=== PATIENT | female | born 1995 | race American Indian/Alaskan Native ===

== ENCOUNTER 2021-11-01 01:27 | Emergency (ER) | payer SELFPAY ==
[2021-11-01] MEDS ORDERED: HYDROcodone/ACETAMINOPHEN 5-325 MG TAB PO ONE (06:33)
--- NOTE | 2021-11-01 06:35 | Emergency Department Report ---
ED Abdominal Pain HPI - General Chief Complaint: Abdominal Pain Stated Complaint: R rib pain Time Seen by Provider: 11/01/21 06:24 Source: patient Mode of arrival: Ambulatory Limitations: No Limitations - History of Present Illness Initial Comments: 26-year-old female presents to the ER today with complaints of right upper quadrant/right rib pain. Patient states that she been having this pain intermittently for 2 to 3 months. She states that the pain started while she was in correction, and she did have it checked out back in August while she was in [facility] and they told her it was related to "cholesterol stones". She states that when she was diagnosed, it was around the time that she was getting released from correction and she never had a chance to follow-up to get referral to general surgery. She states that the pain flared up a couple days ago and got significantly worse last night. She states that the pain seems to be worse with deep breath. She states that the pain has improved since she has been here in the ER. She denies any shortness of breath, chest pain, nausea vomiting, change in her bowel movements, UTI symptoms or any abnormal vaginal symptoms. She denies any fever or chills. She denies any history of abdominal surgeries in t he past. She states that her last menstrual cycle was the end of last month. MD Complaint: abdominal pain, other (right lower rib pain ) -: Gradual, days(s), month(s) Severity scale (0 -10): 10 - Related Data Previous Rx's Medication Instructions Recorded Last Taken Type Cyclobenzaprine [Flexeril 10mg] 10 mg PO TID PRN #20 tablet 01/22/15 Unknown Rx Azithromycin [Zithromax TAB] 250 mg PO QDAY #6 tablet 01/05/16 Unknown Rx Prednisone [predniSONE 10 mg 10 mg PO .TAPER #1 tab.ds.pk 01/05/16 Unknown Rx (6-Day Pack, 21 Tabs)] Pseudoephed/Cod/Guaifen 5 ml PO Q6H PRN #120 ml 01/05/16 Unknown Rx [Robitussin DAC 10-100-30Mg/5Ml] Ibuprofen [Motrin 600 MG tab] 600 mg PO Q8H PRN #30 tablet 11/01/21 Unknown Rx Allergies Allergy/AdvReac Type Severity Reaction Status Date / Time No Known Allergies Allergy Verified 01/22/15 18:24 ED Review of Systems ROS: Stated complaint: R rib pain Other details as noted in HPI Comment: All other systems reviewed and negative Constitutional: denies: chills, fever Eyes: denies: eye pain, eye discharge, vision change ENT: denies: ear pain, throat pain Respiratory: other (Right lower rib pain). denies: cough, shortness of breath, SOB with exertion, SOB at rest, wheezing Cardiovascular: denies: chest pain, palpitations, dyspnea on exertion, edema, syncope, paroxysmal nocturnal dyspnea Gastrointestinal: abdominal pain. denies: nausea, diarrhea, constipation, sophie temesis Genitourinary: denies: urgency, dysuria, frequency, hematuria, discharge, abnormal menses, dyspareunia Musculoskeletal: denies: back pain, joint swelling, arthralgia Skin: denies: rash, lesions, change in color, change in hair/nails, pruritus Neurological: denies: headache, weakness, numbness, paresthesias, confusion, abnormal gait, vertigo Psychiatric: denies: anxiety, depression, auditory hallucinations, visual hallucinations, homicidal thoughts, suicidal thoughts Hematological/Lymphatic: denies: easy bleeding, easy bruising, swollen glands ED Past Medical Hx - Past Medical History Previous Medical History?: Yes Hx Psychiatric Treatment: Yes (Bipolar, ADHD) - Surgical History Past Surgical History?: No - Social History Smoking Status: Current Some Day Smoker Substance Use Type: None - Medications Home Medications: Home Medications Medication Instructions Recorded Confirmed Last Taken Type Cyclobenzaprine [Flexeril 10mg] 10 mg PO TID PRN #20 tablet 01/22/15 Unknown Rx Azithromycin [Zithromax TAB] 250 mg PO QDAY #6 tablet 01/05/16 Unknown Rx Prednisone [predniSONE 10 mg 10 mg PO .TAPER #1 tab.ds.pk 01/05/16 Unknown Rx (6-Day Pack, 21 Tabs)] Pseudoephed/Cod/Guaifen 5 ml PO Q6H PRN #120 ml 01/05/16 Unknown Rx [Robitussin DAC 10-100-30Mg/5Ml] Ibuprofen [Motrin 600 MG tab] 600 mg PO Q8H PRN #30 tablet 11/01/21 Unknown Rx ED Physical Exam - General Limitations: No Limitations General appearance: alert, in no apparent distress - Head Head exam: Present: atraumatic, normocephalic, normal inspection - Eye Eye exam: Present: normal appearance, PERRL, EOMI Pupils: Present: normal accommodation - Neck Neck exam: Present: normal inspection, full ROM. Absent: meningismus - Respiratory Respiratory exam: Present: normal lung sounds bilaterally, chest wall tenderness (There is tenderness to palpation along her right lower costal cartilage). Absent: respiratory distress, wheezes, rales, rhonchi - Cardiovascular Cardiovascular Exam: Present: regular rate, normal rhythm, normal heart sounds - GI/Abdominal GI/Abdominal exam: Present: soft, tenderness (Tenderness right upper quadrant ). Absent: distended, guarding, rebound - Neurological Exam Neurological exam: Present: alert, oriented X3, CN II-XII intact, normal gait - Psychiatric Psychiatric exam: Present: normal affect, normal mood - Skin Skin exam: Present: intact ED Course Vital Signs 11/01/21 11/01/21 04:38 08:46 Temperature 98.2 F Pulse Rate 81 Respiratory 18 20 Rate Blood Pressure 114/74 [Right] O2 Sat by Pulse 100 Oximetry ED Medical Decision Making - Lab Data Result diagrams: 11/01/21 06:53 11/01/21 06:53 - Radiology Data Radiology results: report reviewed Patient: MIGUE NEWBY MR#: [id number] : 1995 Acct:[id number] Age/Sex: 26 / F ADM Date: 11/01/21 Loc: ED Attending Dr: Ordering Physician: DANIEL PORTER Date of Service: 11/01/21 Procedure(s): US abdomen limited Accession Number(s): [id number] cc: DANIEL PORTER ULTRASOUND ABDOMEN, LIMITED (RIGHT UPPER QUADRANT) INDICATION: Right upper quadrant pain. COMPARISON: No relevant prior study is available for comparison. FINDINGS: Pancreas: Visualized portion shows no significant abnormality. Liver: The liver appears normal in size and echotexture. Gallbladder: The gallbladder is contracted and therefore difficult to evaluate. There is a single echogenic focus with posterior shadowing noted within the gallbladder. Bile ducts: Common Bile Duct is normal in caliber measuring 4 mm. Free fluid: None. Additional Findings: None. IMPRESSION: 1. Limited evaluation of the gallbladder due to the patient's non-NPO status. 2. Single echogenic focus within the gallbladder with associated posterior shadowing may suggest a gallstone. Signer Name: Cayla Willoughby MD Signed: 11/01/2021 8:23 AM Workstation Name: [id number] Transcribed By: ABIDA Dictated By: Cayla Willoughby MD Electronically Authenticated By: Cayla Willoughby MD Signed Date/Time: 11/01/21822 DD/ 8 TD/TT: Patient: MIGUE NEWBY MR#: [id number] : 1995 Acct:[id number] Age/Sex: 26 / F ADM Date: 11/01/21 Loc: ED Attending Dr: Ordering Physician: DANIEL PORTER Date of Service: 11/01/21 Procedure(s): XR chest routine 2V Accession Number(s): [id number] cc: DANIEL PORTER Fluoro Time In Minutes: CHEST 2 VIEWS, 11/01/2021 INDICATION: Right-sided rib pain COMPARISON: None FINDINGS: Support devices: None. Heart: The cardiac silhouette is normal in size. Lungs/pleura: The lungs are well expanded and appear clear. Additional findings: There is no evidence of acute bony abnormality of the right ribs. IMPRESSION: 1. No evidence of acute cardiopulmonary process. Signer Name: Cayla Willoughby MD Signed: 11/01/2021 8:45 AM Workstation Name: [id number] Transcribed By: ABIDA Dictated By: Cayla Willoughby MD Electronically Authenticated By: Cayla Willoughby MD Signed Date/Time: 11/01/21844 DD/ 3 TD/TT: - Medical Decision Making 0906: All labs reviewed and unremarkable. Chest x-ray shows nothing acute. Gallbladder ultrasound shows Single echogenic focus within the gallbladder with associated posterior shadowing may suggest a gallstone. Common bile duct m easured normal at 4 mm. No other acute abnormality seen on gallbladder ultrasound. Patient currently resting comfortably on the recliner, not in any distress and playing on her phone. Patient is not toxic or ill-appearing. She appears hydrated. She is neurologically intact. Gait is normal. She had pain in her right upper quadrant as well as her right ribs and she did have reproducible tenderness to palpation along her costal cartilage in the right lower rib area. Her pain likely related to gallstones as well as costochondritis. No evidence of acute cholecystitis was seen on gallbladder ultrasound. There is no indication for any additional test including CT abdomen pelvis at this time. Discussed all results with patient. She will be given referral to general surgery as well as primary care doctor and given medications to help with pain. Gallbladder eating plan also discussed with patient. Patient repeat vital signs are stable. Patient expressed understanding of all instructions and agree with plan. Patient stable at time of discharge. Critical care attestation.: If time is entered above; I have spent that time in minutes in the direct care of this critically ill patient, excluding procedure time. ED Disposition Clinical Impression: Cholelithiases, Costochondritis, acute Disposition: HOME / SELF CARE / HOMELESS Is pt being admited?: No Does the pt Need Aspirin: No Condition: Stable Instructions: Costochondritis, [id number], Cholelithiasis, [id number], Gallbladder Eating Plan, Abdominal Pain (ED) Additional Instructions: I recommend taking the ibuprofen as prescribed to help with any pain. You will need to alter your diet and follow gallbladder eating plan. I recommend that you follow-up with the general surgeon listed on the discharge instructions for further evaluation and treatment of your gallstones. I also recommend follow-up with a primary care doctor, and if you do not have one will be listed on your discharge instructions. Return to the ER if your symptoms changes or worsens in any way. Prescriptions: Ibuprofen [Motrin 600 MG tab] 600 mg PO Q8H PRN #30 tablet PRN Reason: Pain Referrals: TURNER MCCULLOUGH DO [Staff Physician] - 3-5 Days (General surgeon) TALI LAURENT MD [Staff Physician] - 3-5 Days (Primary care physician ) Time of Disposition: 08:59
[2021-11-01 08:00] LABS: Bilirubin,Urine NEG (Negative); Blood,Urine NEG (Negative); Color,Urine Yellow (Yellow); Mucus,Urine FEW /HPF; Protein,Urine <15 mg/dL mg/dL (Negative); Urobilinogen,Urine < 2.0 mg/dL (<2.0)
[2021-11-01 08:05] LABS: Basophils % (Auto) 0.5 % (0.0-1.8); Eosinophils # (Auto) 0.2 K/mm3 (0.0-0.4); Eosinophils % (Auto) 2.6 % (0.0-4.3); Hemoglobin 12.1 gm/dl (10.1-14.3); Lymphocytes % (Auto) 27.1 % (13.4-35.0); Mean Corpuscular HGB Conc 33 % (30-34); Mean Corpuscular Volume 92 fl (79-97); Monocytes # (Auto) 0.8 K/mm3 (0.0-0.8); Monocytes % (Auto) 10.2 % (0.0-7.3); Platelet Count 213 K/mm3 (140-440); Red Blood Count 4.02 M/mm3 (3.65-5.03); Red Cell Distribution Width 14.3 % (13.2-15.2)
[2021-11-01 08:22] LABS: Alanine Aminotransferase 16 units/L (7-56); Blood Urea Nitrogen 14 mg/dL (7-17); Hemolysis Index 16
--- NOTE | 2021-11-01 08:27 | Ultrasound Report ---
ULTRASOUND ABDOMEN, LIMITED (RIGHT UPPER QUADRANT) INDICATION: Right upper quadrant pain. COMPARISON: No relevant prior study is available for comparison. FINDINGS: Pancreas: Visualized portion shows no significant abnormality. Liver: The liver appears normal in size and echotexture. Gallbladder: The gallbladder is contracted and therefore difficult to evaluate. There is a single ech ogenic focus with posterior shadowing noted within the gallbladder. Bile ducts: Common Bile Duct is normal in caliber measuring 4 mm. Free fluid: None. Additional Findings: None. IMPRESSION: 1. Limited evaluation of the gallbladder due to the patient's non-NPO status. 2. Single echogenic focus within the gallbladder with associated posterior shadowing may suggest a ga llstone. Signer Name: Cayla Willoughby MD Signed: 11/01/2021 8:23 AM Workstation Name: [id number]
[2021-11-01 08:30] LABS: BUN/Creatinine Ratio 20
[2021-11-01] MEDS ORDERED: HYDROcodone/ACETAMINOPHEN 5-325 MG TAB PO SCH (08:30)
--- NOTE | 2021-11-01 08:50 | XRay Report ---
CHEST 2 VIEWS, 11/01/2021 INDICATION: Right-sided rib pain COMPARISON: None FINDINGS: Support devices: None. Heart: The cardiac silhouette is normal in size. Lungs/pleura: The lungs are well expanded and appear clear. Additional findings: There is no evidence of acute bony abnormality of the right ribs. IMPRESSION: 1. No evidence of acute cardiopulmonary process. Signer Name: Cayla Willoughby MD Signed: 11/01/2021 8:45 AM Workstation Name: [id number]
[2021-11-01 09:13] VITALS: BP 113/73
== END 2021-11-01 09:13 | disposition home or self-care (01) ==
LOC: ED 01:27
DX: K80.20 Calculus of gallbladder without cholecystitis without obstruction (principal); M94.0 Chondrocostal junction syndrome [Tietze]; F17.200 Nicotine dependence, unspecified, uncomplicated
CPT/HCPCS: 36415; 71046; 76705; 80053; 81001; 83690; 84703; 85025; 99284